=== PATIENT | male | born 1955 | race Caucasian/White ===

== ENCOUNTER → 2022-07-24 09:12 | Outpatient (BNVA) | payer MEDICARE, OTHER, SELFPAY | PROVIDERS: PCP Family Medicine; Visit Provider Family Medicine | DX: M54.50 Low back pain, unspecified (principal) | CPT/HCPCS: 72100 ==

== ENCOUNTER 2022-08-07 06:00 | Outpatient (RCR) | payer MEDICARE, OTHER, SELFPAY | END 2022-09-04 23:59 | disposition home or self-care (01) | LOC: APT 06:00 | PROVIDERS: PCP Family Medicine; Visit Provider Family Medicine | DX: M54.50 Low back pain, unspecified (principal) | CPT/HCPCS: 97110; 97161; 97530 ==

== ENCOUNTER 2022-09-05 06:00 | Outpatient (RCR) | payer MEDICARE, OTHER, SELFPAY | END 2022-09-11 23:59 | disposition home or self-care (01) | LOC: APT 06:00 | PROVIDERS: PCP Family Medicine; Visit Provider Family Medicine | DX: M54.50 Low back pain, unspecified (principal) | CPT/HCPCS: 97110; 97530 ==

== ENCOUNTER → 2023-05-22 10:53 | Outpatient (BNVA) | payer MEDICARE, OTHER, SELFPAY | PROVIDERS: PCP Family Medicine; Visit Provider Nurse Practitioner Family | DX: D18.01 Hemangioma of skin and subcutaneous tissue (principal); L57.0 Actinic keratosis; L82.0 Inflamed seborrheic keratosis; L91.8 Other hypertrophic disorders of the skin; L57.8 Other skin changes due to chronic exposure to nonionizing radiation | CPT/HCPCS: 11102; 11200; 17000; 17110; 99213 ==

== ENCOUNTER 2023-11-03 10:36 | Outpatient (CLI) | payer OTHER, SELFPAY ==
--- NOTE | 2023-11-03 10:37 | MR_ITS ---
WS: [id number] MRI BRAIN WITH HIGH-RESOLUTION IMAGING THROUGH THE INTERNAL AUDITORY CANALS WITHOUT AND WITH CONTRAST HISTORY: SENSORINEURAL HEARING LOSS,BILATERAL COMPARISON: None available. TECHNIQUE: Multiplanar, multisequence imaging is performed through the brain. Additional 3 mm imaging performed in multiple planes through the internal auditory canal. Postcontrast imaging with 20 ml's of MultiHance. No acute intracranial hemorrhage, midline shift, edema or mass effect. Very minimal cerebral atrophy and small vessel disease. No enhancing masses. No edema. Temporal lobes are normal. Ventricles and extra-axial spaces are normal. No inferior displacement of cerebellar tonsils. Clivus and pituitary gland are normal. Internal and external auditory canals: Unremarkable. Cranial nerves VII and VIII complexes: Unremarkable. No enhancement or mass. Cerebellopontine angles: Normal. Paranasal sinuses: Very mild mucoperiosteal thickening throughout the paranasal sinuses. No air-fluid levels. Mastoid air cells: Normal. Calvarium and scalp: Normal. Visualized [place] and dural venous sinuses demonstrate no abnormality. MR/MR iac's wo/w con* [id number] IMPRESSION: 1. Normal MRI IACs. 2. No mass at the cerebellopontine angles. 3. Mild atrophy and small vessel ischemic disease. No prior infarcts.
[2023-11-03] MEDS: gadobenate dimeglumine 20 mL vial IV (11:44)
== END 2023-11-03 10:37 | disposition home or self-care (01) ==
LOC: RAD 10:36
PROVIDERS: PCP Family Medicine; Visit Provider Otolaryngology
DX: H90.3 Sensorineural hearing loss, bilateral (principal); I67.82 Cerebral ischemia
CPT/HCPCS: 70553; A9577

== ENCOUNTER → 2024-02-05 11:10 | Outpatient (BNVA) | payer MEDICARE, OTHER, SELFPAY | PROVIDERS: PCP Family Medicine; Visit Provider Family Medicine | DX: I25.10 Atherosclerotic heart disease of native coronary artery without angina pectoris (principal); J32.9 Chronic sinusitis, unspecified; R91.8 Other nonspecific abnormal finding of lung field | CPT/HCPCS: 80053; 80061; 83036; 85025 ==

== ENCOUNTER 2024-02-12 10:50 | Outpatient (CLI) | payer OTHER, SELFPAY ==
--- NOTE | 2024-02-12 10:56 | XR_ITS ---
WS: [id number] XR lumbar spine min 4V [id number] REASON FOR EXAM: LOW BACK PAIN FINDINGS: Moderate rotatory dextroscoliosis. Relatively normal lordosis. Moderate endplate compression deformities of T12 and L1 which appear chronic with fused anterior oste ophytes. No other significant vertebral body abnormality. Mild narrowing of the disc spaces L3-S1. Narrowing of the L1-L2 and L2-L3 disc spaces along the conca vity of the scoliosis. No spondylolysis. 3. Millimeters of anterolisthesis of L3 in relation to L2 and L5 in relation to L4. XR/XR lumbar spine min 4V [id number] IMPRESSION: Degenerative spondylosis in the lumbar spine as above. Compared to 07/24/2022 there is been progression of disc degeneration at L1 and L2 with increasing severity of the rotatory scoliosis.
--- NOTE | 2024-02-12 10:56 | XR_ITS ---
WS: [id number] XR finger RT min 2V [id number] REASON FOR EXAM: FIFTH FINGER PAIN FINDINGS: Mild narrowing of the DIP joint space with mild subchondral sclerosis and moderate osteophytosis. No other significant bony or joint abnormality of the fifth finger. 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
== END 2024-02-12 10:51 | disposition home or self-care (01) ==
LOC: RAD 10:54
PROVIDERS: PCP Family Medicine; Visit Provider Nurse Practitioner Family
DX: M41.35 Thoracogenic scoliosis, thoracolumbar region (principal); S22.080A Wedge compression fracture of T11-T12 vertebra, initial encounter for closed fracture; M25.78 Osteophyte, vertebrae; S32.010A Wedge compression fracture of first lumbar vertebra, initial encounter for closed fracture; X58.XXXA Exposure to other specified factors, initial encounter; M19.041 Primary osteoarthritis, right hand
CPT/HCPCS: 72110; 73140

== ENCOUNTER → 2024-05-24 10:52 | Outpatient (BNVA) | payer MEDICARE, OTHER, SELFPAY | PROVIDERS: PCP Family Medicine; Visit Provider Nurse Practitioner Family | DX: D18.01 Hemangioma of skin and subcutaneous tissue (principal); L57.8 Other skin changes due to chronic exposure to nonionizing radiation; D23.62 Other benign neoplasm of skin of left upper limb, including shoulder; L82.1 Other seborrheic keratosis | CPT/HCPCS: 99213 ==

== ENCOUNTER → 2024-08-26 14:19 | Outpatient (BNVA) | payer MEDICARE, OTHER, SELFPAY | PROVIDERS: PCP Family Medicine; Visit Provider Internal Medicine | DX: R06.09 Other forms of dyspnea (principal); I25.10 Atherosclerotic heart disease of native coronary artery without angina pectoris; Z87.891 Personal history of nicotine dependence; R07.9 Chest pain, unspecified | CPT/HCPCS: 93005; 99204 ==

== ENCOUNTER 2024-09-20 09:27 | Outpatient (CLI) | payer MEDICARE, OTHER, SELFPAY ==
--- NOTE | 2024-09-20 | ECG_ITS ---
Practice Ignition Test Date: 2024-09-20 Pat Name: Elvin Mcgee Department: Room: Gender: Male Drop Press Hand: : 1955 Requested By: Richard Rosado Order Number: [id number] Berny MD: Chauncey Hernandez M.D. Interpretive Statements Lung unchanged pre/post procedure Intraprocedure shortess of breath Symptoms resoled by discharge PROCEDURE: The baseline electrocardiogram showed normal sinus rhythm with normal ST-Ts poor R wave progression. At the baseline, the patient's blood pressure was 123/62 mm Hg with a heart rate of 68/min. The patient exercised for 9 minutes on a standard Mc protocol. Patient attained a maximum heart rate of 133 beats per minute(87% of the maximum predicted heart rate) with a blood pressure at the peak exercise of 176/72 mm Hg. The EKG at the peak exercise revealed no significant changes. Patient did not have any chest pain or any significant arrhythmis with the exercise Sestamibi was injected 1 minute prior to the peak exercise During the recovery phase, there were no new changes. Blood pressure at the end of the recovery phase was 165/58 mm Hg with a heart rate of 79 per minute. CONCLUSION: 1. No significant EKG changes with the [treadmill exercise 2. No exercise-induced chest pain or cardiac arrhythmia 3. Fair exercise tolerance, attained a maximum of 10.2 METs 4. Sestamibi/Sestamibi perfusion results pending; see separate report. Electronically Signed On 09-27-2024 16:54:26 CDT by Chauncey Hernandez M.D. [email or web address]
[2024-09-20 09:41] VITALS: BMI 23.0
--- NOTE | 2024-09-20 09:43 | NMCV_ITS ---
NM ezekiel perf SPECT r/s* [id number] Everardo Elvin Age: 69 Gender: M : 1955 Exam Date: 09/20/2024 11:22 Ordering Phys: Richard Rosado M.D ([email or web address]) Technologist: PHYLICIA Wilson Exam Location: [facility] Indications: cp STRESS TEST Please see separate stress test report in [facility] for full findings IMAGE PROTOCOL Rest/Stress 1 Exercise Day Radiopharmaceutical Dose (mCi) Administration Site Administered by Rest: Tc-99m 10.8 IV PHYLICIA Wilson Sestamibi Stress:Tc-99m 33 IV PHYLICIA Massey Sestamirobert Rest: 20-Sep-2024 60 Discovery 630 Stress: 20-Sep-2024 30 Discovery 630 Radiopharmaceutical was injected at 87 % maximum heart rate. Images obtained in supine and prone position. SPECT RESULTS Technical Quality: Good Raw Data Analysis: Normal Image Corrections: No attenuation or motion correction applied Summed Stress Score: 0 Summed Rest Score: 0 Summed Difference Score: 0 PERFUSION FINDINGS Fairly uniform myocardial tracer uptake with no significant perfusion abnormalities FUNCTIONAL RESULTS (calculated via Gated SPECT) Stress Image LV EF (%): 55 Stress EDV (mL):118 TID: 0.95 Stress ESV (mL):53 FUNCTIONAL FINDINGS: Segmental wall motion analysis revealing no gross wall motion abnormalities IMPRESSIONS 1. Myocardial perfusion imaging revealing uniform myocardial tracer uptake with no significant Perfusion abnormalities 2. Normal LV ejection fraction of 55%. 3. LV wall motion analysis revealing no gross wall motion abnormalities. 4. Normal LV volume. Low probability for coronary ischemia, based on the above findings Dr Chauncey Hernandez MD FACC (Electronically Signed) Final Date: 20 September 2024 15:15 S
[2024-09-20 12:20] VITALS: BP 136/84; PULSE 77
== END 2024-09-20 09:28 | disposition home or self-care (01) ==
LOC: CDL 09:28
PROVIDERS: PCP Family Medicine; Visit Provider Internal Medicine
DX: R07.9 Chest pain, unspecified (principal); R06.02 Shortness of breath
CPT/HCPCS: 36415; 78452; 93017; A9500

== ENCOUNTER 2024-10-06 11:42 | Outpatient (CLI) | payer MEDICARE, OTHER, SELFPAY ==
--- NOTE | 2024-10-06 12:00 | USCV_ITS ---
Everardo Elvin Age: 69 Gender: M : 1955 Exam Date: 10/06/2024 12:03 Ordering Phys: Richard Rosado M.D ([email or web address]) Technologist: Exam Location: [facility] [place] Indication: cp sob BP: 130 / 80 HR: 63 Rhythm: Sinus Technical Quality: Adequate MEASUREMENTS (Male / Female) Normal Values 2D ECHO LV Diastolic Diameter PLAX 5.3 cm 4.2 - 5.9 / 3.9 - 5.3 cm IVS Diastolic Thickness 1.3 cm 0.6 - 1.0 / 0.6 - 0.9 cm IVS Systolic Thickness 1.8 cm LVPW Diastolic Thickness 1.4 cm 0.6 - 1.0 / 0.6 - 0.9 cm LVPW Systolic Thickness 1.7 cm LVOT Diameter 2.0 cm LV Ejection Fraction 2D Teich 53.9 % LV Ejection Fraction MOD 4C 69.4 % LV Ejection Fraction MOD 2C 68.9 % LV Ejection Fraction 2C AL 68.8 % LA Diameter 3.8 cm RA Systolic Volume 4C AL 68.2 ml RA Systolic Volume 4C MOD 70.3 ml LA Sys Volume AL 77.6 cm cubed LA Sys Volume Index AL 40.3 cm cubed/m squared Aorta at Sinotubular Diameter 3.3 cm IVC Diameter 2.4 cm M-MODE LA Ao Ratio MM 1.4 AV Cusp Separation MM 2.4 cm DOPPLER AV Peak Velocity 147.0 cm/s LVOT Peak Velocity 111.0 cm/s AV Area Cont Eq vti 2.9 cm squared AV Area Cont Eq pk 2.5 cm squared MV Peak Velocity 90.0 cm/s MV Area PHT 3.5 cm squared Mitral E to A Ratio 1.1 TR Peak Velocity 192.0 cm/s TR Peak Gradient 14.7 mmHg TV Peak E Velocity 74.0 cm/s PV Peak Velocity 111.0 cm/s FINDINGS Left Ventricle Left ventricle is normal in size. LV systolic function is normal with EF of 60-65%. No regional wall motion abnormalities. Right Ventricle Normal in size and function Right Atrium Dilated Left Atrium Dilated Mitral Valve Mild mitral annular calcification. Trace mitral regurgitation Aortic Valve Aortic valve is thickened. No significant stenosis or regurgitation Tricuspid Valve Insufficient TR jet to calculate RVSP Pulmonic Valve Mild pulmonic regurgitation Pericardium Normal Aorta Normal in size IVC Not well visualized CONCLUSIONS Systolic function is normal with EF of 60-65%. Biatrial enlargement. Trace mitral regurgitation Mild pulmonic regurgitation Richard Rosado MD (Electronically Signed) Final Date: 16 October 2024 21:22 S
== END 2024-10-06 11:43 | disposition home or self-care (01) ==
LOC: RAD 11:42
PROVIDERS: PCP Family Medicine; Visit Provider Internal Medicine
DX: R07.9 Chest pain, unspecified (principal); R06.02 Shortness of breath; I51.7 Cardiomegaly; I34.81 Nonrheumatic mitral (valve) annulus calcification; I35.8 Other nonrheumatic aortic valve disorders; I37.1 Nonrheumatic pulmonary valve insufficiency
CPT/HCPCS: 93306

== ENCOUNTER → 2024-11-02 12:44 | Outpatient (BNVA) | payer MEDICARE, OTHER, SELFPAY | PROVIDERS: PCP Family Medicine; Visit Provider Internal Medicine | DX: I25.10 Atherosclerotic heart disease of native coronary artery without angina pectoris (principal); R06.09 Other forms of dyspnea | CPT/HCPCS: 99213 ==

== ENCOUNTER → 2024-12-28 09:45 | Outpatient (BNVA) | payer MEDICARE, OTHER, SELFPAY | PROVIDERS: PCP Family Medicine; Visit Provider Family Medicine | DX: I25.10 Atherosclerotic heart disease of native coronary artery without angina pectoris (principal); Z00.00 Encounter for general adult medical examination without abnormal findings; R73.03 Prediabetes | CPT/HCPCS: 80053; 80061; 83036 ==